=== PATIENT | female | born 1990 | race African-American/Black ===

== ENCOUNTER 2021-01-13 11:16 | Observation (INO) ==
[2021-01-13] MEDS ORDERED: PROMETHAZINE 25 MG/1 ML VIAL IM PRN (11:26)
[2021-01-13] MEDS ORDERED: ACETAMINOPHEN 325 MG TABLET PO PRN (11:26)
[2021-01-13] MEDS ORDERED: SODIUM CHLORIDE 0.9% 1,000 ML IV SCH (12:00)
[2021-01-13] MEDS ORDERED: SIMETHICONE CHEW 80 MG TABLET PO PRN (12:51)
[2021-01-13 13:27] LABS: Basophils % 0.1 % (0.0-0.8); Eosinophils % 0.1 % (0.00-10.9); Hematocrit 40.6 VOL% (35.7-47.0); Hemoglobin 13.7 GM/DL (12.0-16.0); Immature Granulocytes % 0.5 %; Immature Granulocytes Absolute 0.08 #; Lymphocytes # 2.3 10*3/uL (1.4-4.0); Mean Corpuscular HGB Conc 33.7 GM/DL (32-36); Mean Corpuscular Volume 90.4 FL (87-102); Mean Platelet Volume 11.8 FL (9.6-12.0); Monocytes % 9.3 % (1.7-12.7); Platelet Count 294 T/CUMM (130-400); Red Blood Count 4.49 MC/CUMM (3.8-5.5); Red Cell Distribution Width 14.1 % (9.3-17.3); White Blood Count 16.1 T/CUMM (4-12)
[2021-01-13] MEDS: ONDANSETRON 4 MG/2 ML VIAL IV PRN ×2 (13:52→18:34)
[2021-01-13 13:53] LABS: Calcium 9.4 MG/DL (8.5-10.1); Osmolality,Calculated 274.7 MOS/KG (273-304); Potassium 3.3 MMOL/L (3.5-5.1)
[2021-01-13] MEDS: HYDROmorphone 2 MG/1 ML VIAL IV PRN ×3 (13:53→22:40)
[2021-01-13] MEDS ORDERED: oxyCODONE/ACETAMINOPHEN 5-325 MG TABLET PO PRN (13:55)
[2021-01-13] MEDS ORDERED: POTASSIUM CHLORIDE RIDER 10 MEQ in PREMIX 1 EACH IV PRN (13:56)
[2021-01-13 13:58] LABS: High Sensitive Troponin I* 34.9 ng/L (0-54)
[2021-01-13] MEDS: PANTOPRAZOLE 40 MG VIAL IV SCH (15:43)
[2021-01-13] MEDS: SODIUM CHLOR 0.9% KCL 20 MEQ 20 MEQ/1,000 ML BAG IV SCH (15:43)
[2021-01-13] MEDS: ALUMINUM/MAGNES/SIMETH MAX STR 30 ML UDCUP PO PRN ×2 (15:43→21:41)
[2021-01-14] MEDS: SODIUM CHLOR 0.9% KCL 20 MEQ 20 MEQ/1,000 ML BAG IV SCH ×3 (01:54→16:46)
[2021-01-14] MEDS: HYDROmorphone 2 MG/1 ML VIAL IV PRN ×3 (03:14→14:52)
[2021-01-14 05:17] LABS: Basophils % 0.3 % (0.0-0.8); Eosinophils # 0.1 10*3/uL (0.0-0.87); Eosinophils % 0.4 % (0.00-10.9); Hematocrit 38.3 VOL% (35.7-47.0); Hemoglobin 12.8 GM/DL (12.0-16.0); Immature Granulocytes % 0.3 %; Immature Granulocytes Absolute 0.03 #; Mean Corpuscular HGB Conc 33.4 GM/DL (32-36); Mean Corpuscular Volume 92.1 FL (87-102); Mean Platelet Volume 12.1 FL (9.6-12.0); Monocytes % 10.7 % (1.7-12.7); Neutrophils % 52.3 % (38.7-73.9); Platelet Count 251 T/CUMM (130-400); Red Blood Count 4.16 MC/CUMM (3.8-5.5); White Blood Count 11.2 T/CUMM (4-12)
[2021-01-14 05:49] LABS: Albumin 3.3 G/DL (3.4-5.0); Calcium 8.6 MG/DL (8.5-10.1); Osmolality,Calculated 279.3 MOS/KG (273-304); Potassium 3.5 MMOL/L (3.5-5.1); Total Protein 6.6 G/DL (6.4-8.2)
[2021-01-14] MEDS ORDERED: POTASSIUM CHLORIDE 20 MEQ TABLET PO ONE ×2 (07:02→09:00)
[2021-01-14] MEDS ORDERED: cefTRIAXone 1,000 MG in SODIUM CHLORIDE 0.9% 100 ML IV ONE (07:21)
[2021-01-14] MEDS: amLODIPine 5 MG TABLET PO SCH (08:34)
[2021-01-14] MEDS: PANTOPRAZOLE 40 MG VIAL IV SCH (08:36)
[2021-01-14] MEDS: ONDANSETRON 4 MG/2 ML VIAL IV PRN ×2 (08:37→15:52)
[2021-01-14] MEDS: ALUMINUM/MAGNES/SIMETH MAX STR 30 ML UDCUP PO PRN (10:10)
[2021-01-14] MEDS: TAMSULOSIN 0.4 MG CAPSULE PO SCH (21:03)
[2021-01-15] MEDS: ONDANSETRON 4 MG/2 ML VIAL IV PRN ×2 (00:37→10:29)
[2021-01-15] MEDS: SODIUM CHLOR 0.9% KCL 20 MEQ 20 MEQ/1,000 ML BAG IV SCH ×3 (00:37→14:10)
[2021-01-15] MEDS: HYDROmorphone 2 MG/1 ML VIAL IV PRN ×2 (00:37→10:40)
[2021-01-15 06:32] LABS: Basophils % 0.4 % (0.0-0.8); Eosinophils # 0.1 10*3/uL (0.0-0.87); Eosinophils % 1.3 % (0.00-10.9); Hematocrit 37.3 VOL% (35.7-47.0); Hemoglobin 12.7 GM/DL (12.0-16.0); Immature Granulocytes % 0.2 %; Immature Granulocytes Absolute 0.02 #; Lymphocytes # 3.4 10*3/uL (1.4-4.0); Mean Corpuscular Volume 91.2 FL (87-102); Mean Platelet Volume 12.6 FL (9.6-12.0); Monocytes % 9.8 % (1.7-12.7); Neutrophils % 47.3 % (38.7-73.9); Platelet Count 242 T/CUMM (130-400); Red Blood Count 4.09 MC/CUMM (3.8-5.5); Red Cell Distribution Width 13.9 % (9.3-17.3); White Blood Count 8.4 T/CUMM (4-12)
[2021-01-15] MEDS ORDERED: fentaNYL 100 MCG/2 ML VIAL ONE (06:42)
[2021-01-15] MEDS ORDERED: MIDAZOLAM 2 MG/2 ML VIAL ONE (06:42)
[2021-01-15] MEDS ORDERED: SCOPOLAMINE 1.5 MG PATCH TRANSDERM ONE (06:45)
[2021-01-15] MEDS ORDERED: LIDOCAINE 2% 5 ML VIAL ONE (06:46)
[2021-01-15] MEDS ORDERED: DEXAMETHASONE 4 MG/1 ML VIAL ONE (06:46)
[2021-01-15] MEDS ORDERED: propofoL 200 MG/20 ML VIAL IV ONE (06:46)
[2021-01-15] MEDS ORDERED: ONDANSETRON 4 MG/2 ML VIAL ONE (06:46)
[2021-01-15] MEDS ORDERED: ROCURONIUM 50 MG/5 ML VIAL IV ONE (06:46)
[2021-01-15] MEDS ORDERED: SEVOFLURANE 1 UNIT/15 MINUTE INH ONE ×6 (06:47→07:56)
[2021-01-15] MEDS ORDERED: cefTRIAXone 1,000 MG in SODIUM CHLORIDE 0.9% 100 ML IV ONE (07:00)
[2021-01-15] MEDS ORDERED: SODIUM CHLORIDE 0.9% 100 ML IV ONE (07:10)
[2021-01-15] MEDS ORDERED: FAMOTIDINE 20 MG/2 ML VIAL IV ONE (07:12)
[2021-01-15] MEDS: PANTOPRAZOLE 40 MG VIAL IV SCH (10:32)
[2021-01-15] MEDS: TAMSULOSIN 0.4 MG CAPSULE PO SCH (10:44)
[2021-01-15] MEDS: amLODIPine 5 MG TABLET PO SCH (10:44)
[2021-01-15 12:00] VITALS: BP 126/63
== END 2021-01-15 14:55 | disposition home or self-care (01) ==
LOC: N.4E → SUATTDRO 11:34
PROVIDERS: ADMIT Surgery; ATTEND Internal Medicine